=== PATIENT | female | born 1960 | race Caucasian/White ===

== ENCOUNTER 2022-11-16 09:13 | Emergency (ER) | payer MEDICAID ==
[~2022-11-16] VITALS: Ht 165.1 cm; Wt 64.0 kg
[2022-11-16] MEDS ORDERED: predniSONE 20 MG TABLET ONE (09:18)
[2022-11-16 09:25] VITALS: O2SAT 94
[2022-11-16] MEDS ORDERED: ALBUTEROL FS 2.5 MG/3 ML VIAL.NEB ONE ×2 (09:26→17:16)
[2022-11-16] MEDS ORDERED: IPRATROPIUM NEB FS 0.5 MG/2.5 ML AMPUL.NEB ONE ×2 (09:26→17:16)
[2022-11-16] MEDS ORDERED: ALBUTEROL FS 2.5 MG/3 ML VIAL.NEB CONTNEB ONE (09:30)
[2022-11-16] MEDS ORDERED: predniSONE 20 MG TABLET PO ONE (09:30)
[2022-11-16] MEDS ORDERED: IPRATROPIUM NEB FS 0.5 MG/2.5 ML AMPUL.NEB NEB ONE ×2 (09:30→17:30)
[2022-11-16 10:34] VITALS: O2SAT 100
[2022-11-16 10:47] LABS: CALCIUM, SERUM 9.9 mg/dL (8.5-10.1); CARBON DIOXIDE 22 mmol/L (21-32); CHLORIDE 97 mmol/L (98-107); CREATININE 0.8 mg/dL (0.6-1.3); GLUCOSE 138 mg/dL (74-106); POTASSIUM 3.4 mmol/L (3.5-5.1); SODIUM SERUM 135 mmol/L (136-145); UREA NITROGEN, BLOOD 24 mg/dL (7-18)
[2022-11-16 10:52] LABS: BASOPHILS # (AUTO) 0.1 K/uL (0.0-0.2); BASOPHILS % (AUTO) 0.8 % (0.0-2.0); HEMATOCRIT 54 % (33-45); HEMOGLOBIN 18.2 g/dL (11.5-14.8); LYMPHOCYTES # (AUTO) 1.5 K/uL (0.8-4.8); LYMPHOCYTES % (AUTO) 19.9 % (20.0-44.0); MEAN CORPUSCULAR HEMOGLOBIN 32 PG (26.0-33.0); MEAN CORPUSCULAR HGB CONC 34 g/dl (31.0-36.0); MEAN CORPUSCULAR VOLUME 93 fL (82-100); MONOCYTES # (AUTO) 0.8 K/uL (0.1-1.30); MONOCYTES % (AUTO) 10.6 % (2.0-12.0); NEUTROPHILS % (AUTO) 68.7 % (43.0-81.0); PLATELET COUNT (AUTO) 451 K/uL (150-450); RED BLOOD CELL COUNT(AUTO) 5.77 MIL/uL (4.0-5.2); RED CELL DISTRIBUTION WIDTH 14.2 % (11.5-15.0); WHITE BLOOD COUNT (AUTO) 7.3 K/uL (4.3-11.0)
[2022-11-16 10:55] LABS: LACTIC ACID 1.5 mmol/L (0.4-2.0)
[2022-11-16] MEDS ORDERED: LORAZEPAM 1 MG TABLET ONE (11:21)
[2022-11-16] MEDS ORDERED: QUET100T PO (11:27)
[2022-11-16] MEDS ORDERED: ASPI-992 PO (11:27)
[2022-11-16] MEDS ORDERED: ASCO100058 PO (11:27)
[2022-11-16] MEDS ORDERED: BILBERRY PO (11:27)
[2022-11-16] MEDS ORDERED: GABA-532 PO (11:27)
[2022-11-16] MEDS ORDERED: SAW PALMETTO PO (11:27)
[2022-11-16] MEDS ORDERED: LORA-258 PO (11:27)
[2022-11-16] MEDS ORDERED: QUET300T2 PO (11:27)
[2022-11-16] MEDS ORDERED: MAGNESIUM HYDROXIDE 30 ML UDC PO PRN (11:30)
[2022-11-16] MEDS ORDERED: LORAZEPAM 1 MG TABLET PO ONE (11:30)
[2022-11-16] MEDS ORDERED: ONDANSETRON HCL/PF 4 MG/2 ML VIAL IVP PRN (11:30)
[2022-11-16] MEDS ORDERED: MAG HYDROX/AL HYDROX/SIMETH 30 ML UDC PO PRN (11:30)
[2022-11-16] MEDS ORDERED: ACETAMINOPHEN 325 MG TABLET PO PRN (11:30)
[2022-11-16] MEDS ORDERED: ENOXAPARIN SODIUM 40 MG/0.4 ML DISP.SYRIN SQ SCH (11:30)
[2022-11-16] MEDS ORDERED: ALBUTEROL FS 2.5 MG/0.5 ML VIAL.NEB NEB PRN (11:30)
[2022-11-16] MEDS ORDERED: ZOLPIDEM TARTRATE 5 MG TABLET PO PRN (11:30)
[2022-11-16] MEDS ORDERED: Z GUARD REMEDY 4 OZ OINT TP PRN (11:30)
[2022-11-16] MEDS ORDERED: IPRATROPIUM NEB FS 0.5 MG/2.5 ML AMPUL.NEB NEB PRN (11:30)
[2022-11-16] MEDS ORDERED: LORAZEPAM 1 MG TABLET PO PRN (11:30)
[2022-11-16 11:56] LABS: LYMPHOCYTES % (MANUAL) 15 % (16-48); MONOCYTES % (MANUAL) 7 % (0-11.0); NEUTROPHILS % (MANUAL) 78 (42-76); PLATELET ESTIMATE INCREASED
[2022-11-16] MEDS ORDERED: ALBUTEROL FS 2.5 MG/0.5 ML VIAL.NEB NEB SCH (13:30)
[2022-11-16] MEDS ORDERED: IPRATROPIUM NEB FS 0.5 MG/2.5 ML AMPUL.NEB NEB SCH (13:30)
[2022-11-16] MEDS ORDERED: methylPREDNISolone SOD SUCC 40 MG/ML VIAL IV SCH (17:00)
[2022-11-16] MEDS ORDERED: LORAZEPAM INJ 2 MG/ML VIAL ONE (17:12)
[2022-11-16 17:15] VITALS: O2SAT 93
[2022-11-16 17:30] VITALS: O2SAT 100
[2022-11-16] MEDS ORDERED: ALBUTEROL FS 2.5 MG/3 ML VIAL.NEB NEB ONE (17:30)
[2022-11-16] MEDS ORDERED: LORAZEPAM INJ 2 MG/ML VIAL IV ONE (17:30)
[2022-11-16 18:36] VITALS: TEMP 98
[2022-11-16 20:07] VITALS: BP 146/78; O2SAT 95
[2022-11-17] MEDS ORDERED: PANTOPRAZOLE 40 MG VIAL IV SCH (09:00)
== END 2022-11-16 21:35 | disposition short-term general hospital (02) ==
LOC: ER 09:16
DX: J96.01 Acute respiratory failure with hypoxia (principal); I10 Essential (primary) hypertension; F41.9 Anxiety disorder, unspecified; Z60.2 Problems related to living alone; Z20.822 Contact with and (suspected) exposure to COVID-19
CPT/HCPCS: 99285; 96374; 71045; 87426; 93005; 85025; 80048; 87040 ×2; 83605; 36415; 84484; 94640; 85007; 94644; J2060; J7512; C9803